=== PATIENT | female | born 1975 | race Caucasian/White ===

== ENCOUNTER 2016-08-09 12:18 | Emergency (ER) | payer SELFPAY ==
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
== END 2016-08-09 13:00 | disposition home or self-care (01) ==
LOC: MADERS 12:18
DX: S93.401A Sprain of unspecified ligament of right ankle, initial encounter (principal); S93.601A Unspecified sprain of right foot, initial encounter; X50.1XXA Overexertion from prolonged static or awkward postures, initial encounter

== ENCOUNTER 2016-09-23 14:28 | Emergency (ER) | payer SELFPAY ==
[2016-09-23] MEDS ORDERED: AMOXicillin 250 MG CAP ONE (15:51)
[2016-09-23] MEDS ORDERED: Ondansetron ODT 4 MG TAB ONE ×2 (15:51→17:13)
[2016-09-23] MEDS ORDERED: Phenazopyridine HCl 97.5 MG TABLET ONE (15:51)
== END 2016-09-23 17:15 | disposition home or self-care (01) ==
LOC: MADERS 14:28
DX: K04.7 Periapical abscess without sinus (principal); J01.90 Acute sinusitis, unspecified; K02.9 Dental caries, unspecified; K03.81 Cracked tooth; K57.92 Diverticulitis of intestine, part unspecified, without perforation or abscess without bleeding; Z87.442 Personal history of urinary calculi
CPT/HCPCS: 96372; J2270; Q0162

== ENCOUNTER 2017-01-08 16:10 | Emergency (ER) | payer BC, SELFPAY ==
[2017-01-08 17:17] LABS: Bilirubin Negative (Negative); Blood, Urine Negative (Negative); Glucose, Urine (Dipstick) Negative (Negative); Leukocyte Negative (Negative); Nitrite Negative (Negative); Protein, Urine (Dipstick) Trace mg/dL (Neg-Trace); Urobilinogen 0.2 mg/dL (0.2-1.0); pH, Urine 5.5 (5.0-9.0)
[2017-01-08 17:18] LABS: Clarity Hazy (Clear)
[2017-01-08] MEDS ORDERED: Ondansetron ODT 4 MG TAB ONE (17:34)
== END 2017-01-08 18:30 | disposition home or self-care (01) ==
LOC: MADERS 16:10
DX: J06.9 Acute upper respiratory infection, unspecified (principal); R10.816 Epigastric abdominal tenderness; M19.90 Unspecified osteoarthritis, unspecified site; Z79.899 Other long term (current) drug therapy
CPT/HCPCS: 81003; 87086; 99283; Q0162

== ENCOUNTER 2017-01-12 08:24 | Emergency (ER) | payer BC | END 2017-01-12 09:05 | disposition home or self-care (01) | LOC: MADERS 08:24 | DX: J06.9 Acute upper respiratory infection, unspecified (principal); F32.9 Major depressive disorder, single episode, unspecified; M19.90 Unspecified osteoarthritis, unspecified site; Z87.442 Personal history of urinary calculi; Z79.899 Other long term (current) drug therapy | CPT/HCPCS: 87081; 87430; 99283 ==

== ENCOUNTER 2017-11-05 13:13 | Emergency (ER) | payer BC, OTHER, SELFPAY ==
[2017-11-05 13:50] LABS: Bilirubin Negative (Negative); Blood, Urine Negative (Negative); Clarity Clear (Clear); Glucose, Urine (Dipstick) Negative (Negative); Leukocyte Negative (Negative); Nitrite Negative (Negative); Protein, Urine (Dipstick) Negative (Neg-Trace); Specific Gravity, Urine 1.015 (1.005-1.030); Urobilinogen 0.2 mg/dL (0.2-1.0)
== END 2017-11-05 14:29 | disposition home or self-care (01) ==
LOC: MADERS 13:13
DX: B34.9 Viral infection, unspecified (principal); M19.90 Unspecified osteoarthritis, unspecified site; F32.9 Major depressive disorder, single episode, unspecified; Z79.899 Other long term (current) drug therapy
CPT/HCPCS: 81003; 99284

== ENCOUNTER 2019-08-03 10:28 | Emergency (ER) | payer OTHER ==
[2019-08-03] MEDS ORDERED: Aspirin Chewable 81 MG TAB ONE (10:49)
[2019-08-03] MEDS ORDERED: Nitroglycerin 0.4 MG TAB 1 EACH ONE (10:50)
[2019-08-03 11:31] LABS: Anisocytosis SLIGHT = 6-15 cells (100X) (0-5/hpf); Band 4 % (5-11); Eosinophils 1 % (0-10); Hemoglobin 13.9 g/dL (12.0-16.0); Hypochromia SLIGHT = 6-15 cells (100X) (0-5/hpf); Lymphocytes 16 % (21-51); MDiff Complete? YES; Mean Corpuscular HGB CONC 30.4 g/dL (32.0-36.0); Mean Corpuscular Hemoglobin 25.4 pg (27.0-31.0); Mean Corpuscular Volume 83.6 fL (78.0-98.0); Mean Platelet Volume 7.6 fL (7.4-10.4); Monocytes 4 % (0-10); Neutrophil 75 % (42-75); Platelet Count 268 thou/uL (130-400); Platelet Morphology Comment Appears Adequate; RBC Distribution Width 12.5 % (11.5-14.5); Red Blood Cell (RBC) Count 5.48 mill/uL (4.20-5.40); White Blood Cell (WBC) Count 6.9 thou/uL (4.8-10.8)
[2019-08-03 11:32] LABS: ALT (SGPT) 28 U/L (8-55); AST (SGOT) 27 U/L (5-34); Albumin 4.8 g/dL (3.5-5.0); Alkaline Phosphatase 104 U/L (40-110); Anion Gap 18 mmol/L (10-20); BUN (Urea Nitrogen) 14 mg/dL (7.0-18.7); Bilirubin, Total 0.6 mg/dL (0.2-1.2); CK (CPK) 84 U/L (29-168); Calc. Creatinine Clearance 0 mL/min (70-130); Calcium 9.7 mg/dL (7.8-10.44); Carbon Dioxide 23 mmol/L (22-29); Chloride 103 mmol/L (98-107); Estimated GFR-MDRD 55; Globulin 3.5 g/dL (2.4-3.5); Glucose 93 mg/dL (70-105); Potassium 4.2 mmol/L (3.5-5.1); Protein, Total 8.3 g/dL (6.0-8.3); Sodium 140 mmol/L (136-145)
--- NOTE | 2019-08-03 11:35 | RAD ---
PORTABLE FRONTAL CHEST RADIOGRAPH: 08/03/2019 HISTORY: Chest pain. COMPARISON: 01/23/2013 FINDINGS: The lungs are clear. The heart and mediastinal contours are unremarkable. IMPRESSION: No acute findings. POS: [facility]US
== END 2019-08-03 12:43 | disposition home or self-care (01) ==
LOC: MADERS 10:28
DX: F41.9 Anxiety disorder, unspecified (principal); R07.89 Other chest pain; R07.2 Precordial pain; M79.7 Fibromyalgia; M19.90 Unspecified osteoarthritis, unspecified site; F32.9 Major depressive disorder, single episode, unspecified; Z79.899 Other long term (current) drug therapy; Z87.442 Personal history of urinary calculi
CPT/HCPCS: 71045; 80053; 82550; 83880; 84484; 85025; 85379; 93005; 94760

== ENCOUNTER 2023-04-19 07:08 | Emergency (ER) | payer OTHER, SELFPAY ==
[2023-04-19] MEDS ORDERED: Ondansetron PF 4 MG/2 ML Vial ONE (07:56)
[2023-04-19] MEDS ORDERED: Morphine 2 MG/ML VIAL ONE (07:56)
[2023-04-19] MEDS ORDERED: Sodium Chloride 0.9% 500 ML ONE ×2 (07:56→08:46)
[2023-04-19 07:58] LABS: #Basophils 0.1 thou/uL (0.0-0.2); #Eosinphils 0.1 thou/uL (0.0-0.7); #Lymphocytes 1.5 thou/uL (1.20-3.40); #Monocytes 0.3 thou/uL (0.11-0.59); #Neutrophils 2.2 thou/uL (1.40-6.50); %Basophils 1.2 % (0.0-1.0); %Eosinophils 2.5 % (0.0-10.0); %Lymphocytes 35.8 % (21.0-51.0); %Neutrophils 53.4 % (42.0-75.0); Hematocrit 42.1 % (36.0-47.0); Hemoglobin 13.6 g/dL (12.0-16.0); Mean Corpuscular HGB CONC 32.4 g/dL (32.0-36.0); Mean Corpuscular Hemoglobin 28.2 pg (27.0-31.0); Mean Corpuscular Volume 87.1 fl (78.0-98.0); Platelet Count 226 10x3/uL (130-400); RBC Distribution Width 12.8 % (11.5-14.5); Red Blood Cell (RBC) Count 4.83 mill/uL (4.20-5.40); White Blood Cell (WBC) Count 4.2 10x3/uL (4.8-10.8)
[2023-04-19 08:17] LABS: ALT (SGPT) 35 U/L (8-55); AST (SGOT) 25 U/L (5-34); Albumin 4.4 g/dL (3.5-5.0); Alkaline Phosphatase 96 U/L (40-110); Anion Gap 18 mmol/L (10-20); BUN (Urea Nitrogen) 17 mg/dL (7.0-18.7); Bilirubin, Total 0.9 mg/dL (0.2-1.2); Calc. Creatinine Clearance 0 mL/min (70-130); Calcium 9.4 mg/dL (7.8-10.44); Carbon Dioxide 21 mmol/L (22-29); Chloride 105 mmol/L (98-107); Estimated GFR 63; Globulin 3.2 g/dL (2.4-3.5); Glucose 84 mg/dL (70-105); Potassium 3.8 mmol/L (3.5-5.1); Protein, Total 7.6 g/dL (6.0-8.3); Sodium 140 mmol/L (136-145)
[2023-04-19] MEDS ORDERED: Ketorolac Tromethamine 30 MG (1 mL) VIAL ONE (09:00)
[2023-04-19 09:30] LABS: Bilirubin Moderate (Negative); Blood, Urine Large (Negative); Clarity Clear (Clear); Glucose, Urine (Dipstick) Negative (Negative); Ketone, Urine 40 mg/dL (Negative); Leukocyte Moderate (Negative); Nitrite Negative (Negative); Protein, Urine (Dipstick) 30 mg/dL (Neg-Trace); Urobilinogen 0.2 mg/dL (Less than 2)
[2023-04-19 09:34] LABS: CAUTI Indications for Culture Dysuria,urgency,freq; Specific Gravity, Urine 1.026 (1.002-1.036); WBC/HPF Greater than 50 HPF (0-3)
[2023-04-19 09:35] LABS: Bacteria/HPF 1+ HPF (None Seen)
[2023-04-19 09:36] LABS: Urine Culture Reflex Yes Yes
[2023-04-19] MEDS ORDERED: Sodium Chloride 0.9% 100 ML ONE (09:49)
[2023-04-19] MEDS ORDERED: cefTRIAXone (ROCEPHIN) 2 GM VIAL ONE (09:49)
== END 2023-04-19 10:08 | disposition home or self-care (01) ==
LOC: MADERS 07:08
DX: N10 Acute pyelonephritis (principal); N20.0 Calculus of kidney
CPT/HCPCS: 74176; 80053; 81001; 85025; 87077; 87086; 96365; 96372; 96375; J0696; J1885; J2272; J2405; J3490; J7030

== ENCOUNTER 2025-01-15 07:27 | Emergency (ER) | payer OTHER ==
[2025-01-15] MEDS ORDERED: Dexamethasone 4 MG TAB ONE (08:11)
== END 2025-01-15 09:05 | disposition home or self-care (01) ==
LOC: MADERS 07:27
DX: J02.9 Acute pharyngitis, unspecified (principal); H66.91 Otitis media, unspecified, right ear; Z79.899 Other long term (current) drug therapy
CPT/HCPCS: 87081; 87430; 99283; J8540